=== PATIENT | male | born 1945 | race Caucasian/White ===

== ENCOUNTER → 2024-03-07 06:35 | Day surgery (SDC) | payer BC, SELFPAY | LOC: GI 06:35 | PROVIDERS: ATTENDING PHYSICIAN Surgery | DX: Z12.11 Encounter for screening for malignant neoplasm of colon (principal); K57.30 Diverticulosis of large intestine without perforation or abscess without bleeding; K62.7 Radiation proctitis; K62.5 Hemorrhage of anus and rectum; Z86.010 Personal history of colon polyps; Z98.0 Intestinal bypass and anastomosis status; Y84.2 Radiological procedure and radiotherapy as the cause of abnormal reaction of the patient, or of later complication, without mention of misadventure at the time of the procedure | CPT/HCPCS: 45382 ==

== ENCOUNTER → 2025-03-21 06:36 | Outpatient (REF) | payer MEDICARE, SELFPAY | LOC: PAVMRI 06:36 | PROVIDERS: ATTENDING PHYSICIAN Internal Medicine Gastroenterology; FAMILY PHYSICIAN Student in an Organized Health Care Education/Training Program | DX: M25.512 Pain in left shoulder (principal) | CPT/HCPCS: 73221 ==

== ENCOUNTER → 2025-10-09 14:55 | Outpatient (REF) | payer MEDICARE, SELFPAY | LOC: DHVS 14:55 | PROVIDERS: ATTENDING PHYSICIAN Student in an Organized Health Care Education/Training Program | DX: I65.23 Occlusion and stenosis of bilateral carotid arteries (principal) | CPT/HCPCS: 93880 ==